=== PATIENT | female | born 1975 | race Caucasian/White ===

== ENCOUNTER 2022-12-19 08:30 | Emergency (ER) | payer SELFPAY ==
--- NOTE | 2022-12-19 08:32 | ED.EAR ---
HPI - Ear Problem General Chief complaint: Ear Stated complaint: right ear pain Time Seen by Provider: 12/19/22 08:46 Source: patient and RN notes reviewed Mode of arrival: ambulatory Limitations: no limitations History of Present Illness HPI Narrative: 47-year-old female presents with concern for right ear pain, slightly decreased hearing, feeling of water in the ear. She reports she used a Q-tip and a Seymour pin as well as peroxide without relief. She denies drainage from the ear. She denies cold symptoms. MD Complaint: ear pain Related Data Home Medications Medication Instructions Recorded Confirmed albuterol sulfate 90 mcg/actuation 2 puff inhalation DIRECTED PRN 12/19/22 12/19/22 aerosol inhaler Shortness Of Breath Or Wheezing escitalopram oxalate 20 mg tablet 10 mg PO DAILY 12/19/22 12/19/22 fluticasone fur. 100 mcg-umeclid 1 inh inhalation DAILY 12/19/22 12/19/22 62.5 mcg-vilant 25 mcg inhalat.powder (Trelegy Ellipta) furosemide 40 mg tablet 40 mg PO DIRECTED PRN Edema 12/19/22 12/19/22 glipizide 10 mg tablet, extended 10 mg PO DAILY da 12/19/22 12/19/22 release 24 hr metoprolol succinate 50 mg 50 mg PO DAILY 12/19/22 12/19/22 tablet,extended release 24 hr Allergies Allergy/AdvReac Type Severity Reaction Status Date / Time acetaminophen [From Percocet] Allergy Rash Verified 12/19/22 08:42 oxycodone [From Percocet] Allergy Rash Verified 12/19/22 08:42 lactose intolerance Allergy Unknown Other Uncoded 12/19/22 08:32 PCN Allergy Unknown Other Uncoded 12/19/22 08:32 Review of Systems Review of Systems: CONSTITUTIONAL: Denies malaise, chills, sweats, or fever. EYES: Denies visual changes, redness, or discharge. ENT: Denies rhinorrhea, congestion, sinus pain, and sore throat. Reports right ear pain CARDIOVASCULAR: Denies chest pain, palpitations, or edema. RESPIRATORY: Denies cough. Denies dyspnea. GASTROINTESTINAL: Denies abdominal pain, nausea, vomiting, diarrhea SKIN: Denies rash or itching. MUSCULOSKELETAL: Denies myalgia. NEUROLOGIC: Denies headache. All systems reviewed & are unremarkable except as noted in HPI and below PMFSH Comments At time of signature, agree with nursing past medical, surgical, social and family history. There is no relevant family history pertinent to the presenting complaint Exam Narrative: GENERAL: Well-appearing, well-nourished, and in no acute distress. HEAD: Normocephalic EYES: PERRLA, conjunctivae clear ENT: Nares clear. Mucous membranes moist. TM pearly yang with dull light reflex bilaterally; mild right tragal tenderness with EAC erythema and edema. Oropharynx not erythematous without lesions. Tonsils not enlarged and without exudate, no drooling, no hoarseness, no trismus, uvula midline. NECK: Supple. No lymphadenopathy CHEST: Clear to auscultation, breath sounds equal. No wheezing, rhonchi, rales, or stridor. No respiratory distress, speaks in full sentences. HEART: Regular rate and rhythm. No murmur heard. SKIN: Warm, dry, no rash. NEURO: Alert and oriented x3. PSYCH: Normal mood and affect Course Course Emergency Course: Patient is aware of diagnosis, understands and agrees to treatment plan. Anticipatory guidance given. Patient agrees to follow-up as directed and is aware of reasons to seek care at the emergency department. Portions of this record may have been created with voice recognition software Level of Care: Express Care Visit Vital Signs Vital signs: Reviewed. Medical Decision Making MDM Narrative Medical decision making narrative: Differential diagnosis considered: Avila virus, strep pharyngitis, allergic rhinitis, upper respiratory tract infection, sinusitis, rhinosinusitis, nasopharyngitis. viral pharyngitis, otitis media, otitis externa, otitis effusion, cerumen impaction, foreign body. Exam findings show no acute concerns or changes; patient is non-toxic appearing and is in no distress. Patient is appropriate for out
[2022-12-19 08:41] VITALS: BP 133/71; PULSE 73; RESP 20; TEMP 36.4; O2SAT 95
== END 2022-12-19 09:08 | disposition home or self-care (01) ==
PROVIDERS: Emergency Provider Nurse Practitioner; PCP Family Medicine
DX: H66.91 Otitis media, unspecified, right ear (principal); I10 Essential (primary) hypertension; E11.9 Type 2 diabetes mellitus without complications; F32.A Depression, unspecified; Z86.16 Personal history of COVID-19
CPT/HCPCS: 99213; G0463

== ENCOUNTER 2023-04-02 12:43 | Emergency (ER) | payer BC, SELFPAY ==
[2023-04-02 13:12] VITALS: BP 118/69; PULSE 102; RESP 24; TEMP 37.2; O2SAT 97
--- NOTE | 2023-04-02 13:46 | ED.GENADULT ---
HPI - General Adult General Chief complaint: Upper Respiratory Infection Stated complaint: Cough/SOB Source: patient Mode of arrival: ambulatory Limitations: no limitations History of Present Illness HPI narrative: Patient presents for evaluation of sick symptoms since yesterday. symptoms include fever, chills, cough, shortness of breath only during coughing episodes, and nausea during coughing episodes. Her throat is irritated from coughing. She has some pleuritic chest discomfort but denies chest pain otherwise. Her nephew currently has similar symptoms. She has not taken any [id number] medications for symptoms. She does not smoke. She has an underlying hx of asthma. She has not used her inhalers nor taken her beta-jorge yet today. Related Data Home Medications Medication Instructions Recorded Confirmed albuterol sulfate 90 mcg/actuation 2 puff inhalation DIRECTED PRN 12/19/22 12/19/22 aerosol inhaler Shortness Of Breath Or Wheezing escitalopram oxalate 20 mg tablet 10 mg PO DAILY 12/19/22 12/19/22 fluticasone fur. 100 mcg-umeclid 1 inh inhalation DAILY 12/19/22 12/19/22 62.5 mcg-vilant 25 mcg inhalat.powder (Trelegy Ellipta) furosemide 40 mg tablet 40 mg PO DIRECTED PRN Edema 12/19/22 12/19/22 glipizide 10 mg tablet, extended 10 mg PO DAILY da 12/19/22 12/19/22 release 24 hr metoprolol succinate 50 mg 50 mg PO DAILY 12/19/22 12/19/22 tablet,extended release 24 hr Allergies Allergy/AdvReac Type Severity Reaction Status Date / Time acetaminophen [From Percocet] Allergy Rash Verified 12/19/22 08:42 oxycodone [From Percocet] Allergy Rash Verified 12/19/22 08:42 lactose intolerance Allergy Unknown Other Uncoded 12/19/22 08:32 PCN Allergy Unknown Other Uncoded 12/19/22 08:32 Review of Systems Review of Systems: CONSTITUTIONAL: Reports fever and chills EYES: Denies visual changes, redness, or discharge. ENT: Reports throat discomfort. Denies rhinorrhea, congestion, or otalgia. CARDIOVASCULAR: Reports pleuritic chest pain. Denies chest pain otherwise. Denies palpitations, or edema. RESPIRATORY: Reports cough and shortness of breath during coughing episodes GASTROINTESTINAL: Denies abdominal pain, nausea, vomiting, or diarrhea. GENITOURINARY: Denies dysuria or hematuria. SKIN: Denies rash or itching. MUSCULOSKELETAL: Denies back pain, joint pain, or myalgia. NEUROLOGIC: Denies headache, numbness, dizziness, or weakness. PSYCHIATRIC: Denies anxiety or depression. [facility] Past Medical History Medical History Asthma Diabetes Thyroid disorder Surgical History Surgical History No pertinent past surgical history Family History Family History Mother Family history non-contributory Social History Social History (Updated 04/02/23 @ 13:50 by SIERRA Tyler, ) Substance use: never Living arrangements: with family Gender identity (if verbalized by the patient): Female Sexual Orientation (if Verbalized by the Patient): Straight or Heterosexual Spiritual care concerns: No Exam Narrative: GENERAL: Well-appearing, well-nourished, and in no acute distress. HEAD: Normocephalic, atraumatic. EYES: PERRLA and EOMI. ENT: Nares clear, no rhinorrhea or epistaxis. Mucous membranes moist. Oropharynx without tonsillar hypertrophy exudate or other lesions. Bilateral TMs pearly yang nonbulging NECK: Supple. No adenopathy or masses. No carotid bruits or JVD CHEST: Clear to auscultation. No respiratory distress. No wheezes rales or rhonchi HEART: Regular rate and rhythm. No murmur heard. Normal peripheral pulses. ABDOMEN: Soft, nontender, nondistended, normal active bowel sounds. EXTREMITIES: Normal range of motion. No edema. SKIN: Warm, dry, no rash. NEURO: No focal deficits. Alert and o
== END 2023-04-02 13:55 | disposition home or self-care (01) ==
PROVIDERS: Emergency Provider Nurse Practitioner; PCP Family Medicine
DX: U07.1 COVID-19 (principal); J45.909 Unspecified asthma, uncomplicated; E11.9 Type 2 diabetes mellitus without complications; Z79.84 Long term (current) use of oral hypoglycemic drugs
CPT/HCPCS: 87081; 87426; 87804; 87880; 99213; G0463